=== PATIENT | male | born 1960 | race African-American/Black ===

== ENCOUNTER 2020-05-01 15:38 | Outpatient (CLI) | payer MEDICAID ==
[2020-05-02 01:49] LABS: SARS-CoV-2 PCR by NAA Not Detected (NotDetected)
== END 2020-05-01 15:39 | disposition home or self-care (01) ==
LOC: CSHLAB 15:38
PROVIDERS: ATTEND Surgery Surgery of the Hand
DX: Z20.822 Contact with and (suspected) exposure to COVID-19 (principal); M10.042 Idiopathic gout, left hand
CPT/HCPCS: 87635; 93005; 93010; U0003; U0005

== ENCOUNTER 2020-05-07 14:24 | Inpatient (IN) | payer OTHER ==
[2020-05-07] MEDS ORDERED: Senokot S 8.6-50 MG TAB PO PRN (15:26)
[2020-05-07] MEDS ORDERED: hydrOXYzine 10 MG TAB PO PRN (15:32)
[2020-05-07] MEDS ORDERED: Heparin 10,000 UNITS/ 10 ML VIAL SLOW IVP PRN (17:21)
[2020-05-07] MEDS ORDERED: EPOETIN ALFA-EPBX (ESRD) 4,000 UNIT/ML VIAL IVP PRN (17:22)
[2020-05-07] MEDS: cloNIDine 0.1 MG TAB PO SCH ×2 (17:30→20:40)
[2020-05-07] MEDS ORDERED: Sevelamer Carbonate 800 MG TAB PO PRN (20:36)
[2020-05-07 21:00] VITALS: BMI 18.7
[2020-05-07] MEDS: Sevelamer Carbonate 800 MG TAB PO SCH (21:35)
[2020-05-07] MEDS: Carvedilol 25 MG TAB PO SCH (21:36)
[2020-05-07] MEDS: TICAGRELOR 90 MG TABLET PO SCH (21:36)
[2020-05-07] MEDS: Heparin 5,000 UNITS/ML VIAL SC SCH (21:36)
[2020-05-08] MEDS: hydrALAZINE 20 MG/ML VIAL SLOW IVP PRN ×3 (00:09→16:51)
[2020-05-08 05:41] LABS: #Eosinphils 0.4 10x3/uL (0.0-0.5); #Monocytes 0.4 10x3/uL (0.0-1.1); #Neutrophils 3.4 10x3/uL (1.5-8.4); %Basophils 0.6 % (0.0-2.0); %Eosinophils 8.4 % (0.0-6.0); %Lymphocytes 10.3 % (18.0-47.0); %Monocytes 7.8 % (0.0-10.0); %Neutrophils 72.7 % (40.0-75.0); Hemoglobin 14.6 g/dL (13.5-17.5); Mean Corpuscular HGB CONC 30.7 g/dL (32.0-36.0); Mean Corpuscular Hemoglobin 27.9 pg (27.0-33.0); Mean Corpuscular Volume 90.8 fl (81.2-95.1); Mean Platelet Volume 11.1 fl (7.4-10.4); Platelet Count 137 10x3/uL (150-450); RBC Distribution Width 17.6 % (11.5-14.5); Red Blood Cell (RBC) Count 5.23 10x6/uL (4.32-5.72); White Blood Cell (WBC) Count 4.6 10x3/uL (3.5-10.5)
[2020-05-08 05:47] LABS: ALT (SGPT) Less than 6 U/L (8-55); AST (SGOT) 19 U/L (5-34); Albumin 4.2 g/dL (3.5-5.0); Alkaline Phosphatase 74 U/L (40-110); Anion Gap 21 mmol/L (10-20); BUN (Urea Nitrogen) 44 mg/dL (8.4-25.7); Bilirubin, Total 0.6 mg/dL (0.2-1.2); Calc. Creatinine Clearance 6 mL/min (70-130); Carbon Dioxide 28 mmol/L (22-29); Chloride 97 mmol/L (98-107); Globulin 3.3 g/dL (2.4-3.5); Glucose 88 mg/dL (70-105); Magnesium 2.3 mg/dL (1.6-2.6); Potassium 4.2 mmol/L (3.5-5.1); Protein, Total 7.5 g/dL (6.0-8.3); Sodium 142 mmol/L (136-145)
[2020-05-08 05:57] LABS: Phosphorus 6.2 mg/dL (2.3-4.7)
[2020-05-08] MEDS: Carvedilol 25 MG TAB PO SCH ×2 (08:41→22:17)
[2020-05-08] MEDS: Sevelamer Carbonate 800 MG TAB PO SCH ×3 (08:41→16:29)
[2020-05-08] MEDS: Heparin 5,000 UNITS/ML VIAL SC SCH ×4 (08:42→22:17)
[2020-05-08] MEDS: TICAGRELOR 90 MG TABLET PO SCH ×2 (08:42→22:18)
[2020-05-08] MEDS: Aspirin 81 mg Enteric Coated Tablet PO SCH (08:42)
[2020-05-08] MEDS: Losartan Potassium 50 MG TAB PO SCH (08:42)
[2020-05-08] MEDS: Ondansetron PF 4 MG/2 ML Vial IVP PRN (11:57)
[2020-05-08] MEDS ORDERED: Prevnar 13-Val Conj/PF 0.5 ML SYRINGE IM ONE (21:00)
[2020-05-08] MEDS ORDERED: FLU VACC QS2020-21(6MOS UP)/PF 60 MCG/0.5 ML SYRINGE IM ONE (21:00)
[2020-05-08] MEDS: Atorvastatin Calcium 20 MG TAB PO SCH (22:17)
[2020-05-09] MEDS: Sevelamer Carbonate 800 MG TAB PO SCH ×4 (08:34→17:47)
[2020-05-09] MEDS: TICAGRELOR 90 MG TABLET PO SCH ×2 (08:35→20:11)
[2020-05-09] MEDS: Carvedilol 25 MG TAB PO SCH ×2 (08:35→20:11)
[2020-05-09] MEDS: Losartan Potassium 50 MG TAB PO SCH (08:35)
[2020-05-09] MEDS: Aspirin 81 mg Enteric Coated Tablet PO SCH (08:35)
[2020-05-09] MEDS: Heparin 5,000 UNITS/ML VIAL SC SCH ×3 (09:14→21:25)
[2020-05-09] MEDS: Amlodipine 10 MG TAB PO SCH ×2 (12:44→13:12)
[2020-05-09] MEDS: Ondansetron PF 4 MG/2 ML Vial IVP PRN (13:23)
[2020-05-09 15:32] LABS: Anion Gap 24 mmol/L (10-20)
[2020-05-09 15:37] LABS: BUN (Urea Nitrogen) 65 mg/dL (8.4-25.7); Calc. Creatinine Clearance 5 mL/min (70-130); Calcium 10.3 mg/dL (7.8-10.44); Carbon Dioxide 31 mmol/L (22-29); Chloride 96 mmol/L (98-107); Glucose 109 mg/dL (70-105); Magnesium 2.7 mg/dL (1.6-2.6); Phosphorus 8.5 mg/dL (2.3-4.7); Potassium 4.8 mmol/L (3.5-5.1); Sodium 146 mmol/L (136-145)
[2020-05-09] MEDS: Acetaminophen 325 MG TAB PO PRN (16:18)
[2020-05-09] MEDS: Atorvastatin Calcium 20 MG TAB PO SCH (20:11)
[2020-05-10 06:07] LABS: ALT (SGPT) Less than 6 U/L (8-55); AST (SGOT) 13 U/L (5-34); Albumin 3.7 g/dL (3.5-5.0); Alkaline Phosphatase 67 U/L (40-110); Anion Gap 19 mmol/L (10-20); BUN (Urea Nitrogen) 31 mg/dL (8.4-25.7); Bilirubin, Total 0.5 mg/dL (0.2-1.2); Calc. Creatinine Clearance 7 mL/min (70-130); Calcium 9.7 mg/dL (7.8-10.44); Carbon Dioxide 29 mmol/L (22-29); Chloride 97 mmol/L (98-107); Globulin 3.1 g/dL (2.4-3.5); Glucose 86 mg/dL (70-105); Magnesium 2.2 mg/dL (1.6-2.6); Potassium 4.3 mmol/L (3.5-5.1); Protein, Total 6.8 g/dL (6.0-8.3); Sodium 141 mmol/L (136-145)
[2020-05-10 06:23] LABS: #Eosinphils 0.2 10x3/uL (0.0-0.5); #Monocytes 0.5 10x3/uL (0.0-1.1); #Neutrophils 2.5 10x3/uL (1.5-8.4); %Basophils 0.8 % (0.0-2.0); %Eosinophils 5.8 % (0.0-6.0); %Monocytes 12.4 % (0.0-10.0); %Neutrophils 67.8 % (40.0-75.0); Hemoglobin 9.6 g/dL (13.5-17.5); Mean Corpuscular HGB CONC 30.6 g/dL (32.0-36.0); Mean Corpuscular Hemoglobin 28.3 pg (27.0-33.0); Mean Corpuscular Volume 92.6 fl (81.2-95.1); Mean Platelet Volume 10.4 fl (7.4-10.4); Platelet Count 178 10x3/uL (150-450); Red Blood Cell (RBC) Count 3.64 10x6/uL (4.32-5.72); White Blood Cell (WBC) Count 3.7 10x3/uL (3.5-10.5)
[2020-05-10 06:58] LABS: Phosphorus 6.3 mg/dL (2.3-4.7)
[2020-05-10] MEDS ORDERED: Amlodipine 10 MG TAB PO SCH (09:00)
[2020-05-10] MEDS: Carvedilol 25 MG TAB PO SCH (09:44)
[2020-05-10] MEDS: Aspirin 81 mg Enteric Coated Tablet PO SCH (09:44)
[2020-05-10] MEDS: Losartan Potassium 50 MG TAB PO SCH (09:44)
[2020-05-10] MEDS: Sevelamer Carbonate 800 MG TAB PO SCH ×3 (09:45→18:14)
[2020-05-10] MEDS: Heparin 5,000 UNITS/ML VIAL SC SCH ×2 (09:45→18:13)
[2020-05-10] MEDS: TICAGRELOR 90 MG TABLET PO SCH (09:45)
[2020-05-10] MEDS ORDERED: levETIRAcetam in NS 500 MG in Premix Bag 1 BAG IVPB SCH (11:45)
[2020-05-10] MEDS: Acetaminophen 325 MG TAB PO PRN (13:30)
[2020-05-10 16:09] VITALS: BP 146/78; TEMP 98
== END 2020-05-10 18:30 | disposition home or self-care (01) | DRG 987 ==
LOC: CSHERS 14:24 → CSHTELE 20:18 → OBSVTOIN 05-09 13:59
PROVIDERS: ADMIT Internal Medicine; ATTEND Internal Medicine
PROC: 0X6P0Z3 Detachment at Left Index Finger, Low, Open Approach (ICD-10-PCS; 2020-05-06)
PROC: 5A1D70Z Performance of Urinary Filtration, Intermittent, Less than 6 Hours Per Day (ICD-10-PCS; principal; 2020-05-09)
DX: G93.49 Other encephalopathy (principal); N18.6 End stage renal disease; I12.0 Hypertensive chronic kidney disease with stage 5 chronic kidney disease or end stage renal disease; E87.0 Hyperosmolality and hypernatremia; G93.41 Metabolic encephalopathy; I25.10 Atherosclerotic heart disease of native coronary artery without angina pectoris; L29.9 Pruritus, unspecified; E78.5 Hyperlipidemia, unspecified; D63.1 Anemia in chronic kidney disease; E87.5 Hyperkalemia; E83.39 Other disorders of phosphorus metabolism; Z79.899 Other long term (current) drug therapy; Z89.022 Acquired absence of left finger(s); Z91.14 Patient's other noncompliance with medication regimen; Z99.2 Dependence on renal dialysis; Z95.5 Presence of coronary angioplasty implant and graft; M1A.9XX1 Chronic gout, unspecified, with tophus (tophi)
CPT/HCPCS: 36415; 80048; 80053; 83735; 84100; 85025; 87070; 87205; 88305; 88311; 89060; 90935; 94760; 96372; 96374; 96376; 99285; G0257; G0378; J0360; J0690; J1644; J2001; J2250; J2405; Q5105; S0020

== ENCOUNTER 2020-06-10 10:58 | Inpatient (IN) | payer OTHER ==
[2020-06-10 12:47] LABS: #Monocytes 0.7 10x3/uL (0.0-1.1); #Neutrophils 7.8 10x3/uL (1.5-8.4); %Basophils 0.3 % (0.0-2.0); %Eosinophils 0.4 % (0.0-6.0); %Lymphocytes 4.7 % (18.0-47.0); %Monocytes 8.1 % (0.0-10.0); %Neutrophils 85.7 % (40.0-75.0); Mean Corpuscular HGB CONC 29.9 g/dL (32.0-36.0); Platelet Count 150 10x3/uL (150-450); RBC Distribution Width 17.6 % (11.5-14.5); Red Blood Cell (RBC) Count 2.69 10x6/uL (4.32-5.72); White Blood Cell (WBC) Count 9.1 10x3/uL (3.5-10.5)
[2020-06-10 12:59] LABS: ALT (SGPT) Less than 6 U/L (8-55); AST (SGOT) 10 U/L (5-34); Albumin 3.2 g/dL (3.5-5.0); Alkaline Phosphatase 104 U/L (40-110); Anion Gap 21 mmol/L (10-20); BUN (Urea Nitrogen) 47 mg/dL (8.4-25.7); Bilirubin, Total 0.8 mg/dL (0.2-1.2); Calc. Creatinine Clearance 0 mL/min (70-130); Calcium 9.5 mg/dL (7.8-10.44); Carbon Dioxide 30 mmol/L (22-29); Chloride 96 mmol/L (98-107); Globulin 3.6 g/dL (2.4-3.5); Glucose 108 mg/dL (70-105); Potassium 4.6 mmol/L (3.5-5.1); Protein, Total 6.8 g/dL (6.0-8.3); Sodium 142 mmol/L (136-145)
[2020-06-10 13:15] LABS: Hypochromia SLIGHT = 6-15 cells (100X) (0-5/hpf); Platelet Morphology Comment Appears Adequate
[2020-06-10 13:22] LABS: CKMB 0.7 ng/mL (0-6.6)
[2020-06-10] MEDS ORDERED: Ondansetron PF 4 MG/2 ML Vial IVP PRN (13:45)
[2020-06-10] MEDS ORDERED: Loperamide HCl 2 MG CAP PO PRN (13:45)
[2020-06-10] MEDS ORDERED: HYDROcodone/Acetaminophen 5/325 mg Tablet PO PRN (13:45)
[2020-06-10] MEDS ORDERED: Acetaminophen 325 MG TAB PO PRN (13:45)
[2020-06-10] MEDS ORDERED: Cepastat Lozenges 1 LOZ PO PRN (13:45)
[2020-06-10] MEDS ORDERED: Calcium Carbonate 500 MG ChewTAB PO PRN (13:45)
[2020-06-10] MEDS ORDERED: Guaifenesin DM 100-10/5 ML UDCUP PO PRN (13:45)
[2020-06-10] MEDS ORDERED: Loratadine 10 MG TAB PO PRN (13:45)
[2020-06-10] MEDS ORDERED: Bisacodyl 10 MG SUPP PR PRN (13:45)
[2020-06-10] MEDS ORDERED: Senokot S 8.6-50 MG TAB PO PRN (13:45)
[2020-06-10] MEDS ORDERED: Ondansetron ODT 4 MG TAB PO PRN (13:45)
[2020-06-10] MEDS ORDERED: Labetalol HCl 100 MG/20 ML VIAL SLOW IVP PRN (13:45)
[2020-06-10] MEDS ORDERED: Sodium Chloride 0.65% Nasal 44 ML BOT EA NARE PRN (13:45)
[2020-06-10] MEDS ORDERED: Eucerin (Mineral Oil/Petrolatum,White) 30 gm Jar TOP PRN (13:45)
[2020-06-10] MEDS ORDERED: Zolpidem Tartrate 5 MG TAB PO PRN (13:45)
[2020-06-10] MEDS ORDERED: Acetaminophen/Codeine 30-300mg Tablet PO PRN (13:46)
[2020-06-10] MEDS ORDERED: hydrOXYzine 10 MG TAB PO PRN (13:46)
[2020-06-10 17:21] LABS: Actual Bicarbonate (HCO3a) 34.5 mEq/L (22-28); CO2 Tension 46.6 mmHg (35.0-45.0); Carboxyhemoglobin (COHb) 0.2 gm% (0.0-3.0); Hemoglobin (Hb) 9.7 g/dL (14.0-18.0); O2 Tension (PaO2), arterial 80.3 mmHg (80.0-100.0); Potassium - ABG Lab 3.5 mmol/L (3.70-5.30); Puncture Site LRA; pH, Arterial 7.49 (7.35-7.45)
[2020-06-10 21:23] VITALS: BMI 19.4
[2020-06-10] MEDS: Carvedilol 25 MG TAB PO SCH (22:04)
[2020-06-10] MEDS: Atorvastatin Calcium 20 MG TAB PO SCH (22:04)
[2020-06-10] MEDS: TICAGRELOR 90 MG TABLET PO SCH (22:04)
[2020-06-10] MEDS: Ferrous Sulfate 325 MG TAB PO SCH (22:04)
[2020-06-10] MEDS: Sevelamer Carbonate 800 MG TAB PO SCH (22:04)
[2020-06-10] MEDS: Heparin 5,000 UNITS/ML VIAL SC SCH (22:22)
[2020-06-11] MEDS: Amlodipine 10 MG TAB PO SCH (08:33)
[2020-06-11] MEDS: Heparin 5,000 UNITS/ML VIAL SC SCH ×2 (08:33→20:57)
[2020-06-11] MEDS: Folic Acid/Vit B Comp W-C PO SCH (08:33)
[2020-06-11] MEDS: Ferrous Sulfate 325 MG TAB PO SCH ×2 (08:34→18:12)
[2020-06-11] MEDS: TICAGRELOR 90 MG TABLET PO SCH ×2 (08:34→20:54)
[2020-06-11] MEDS: Carvedilol 25 MG TAB PO SCH ×2 (08:34→20:54)
[2020-06-11] MEDS: Losartan Potassium 50 MG TAB PO SCH (08:34)
[2020-06-11] MEDS: Sevelamer Carbonate 800 MG TAB PO SCH ×3 (08:34→18:12)
[2020-06-11] MEDS: Aspirin 81 mg Enteric Coated Tablet PO SCH (08:34)
[2020-06-11 08:58] LABS: #Eosinphils 0.1 10x3/uL (0.0-0.5); #Monocytes 0.6 10x3/uL (0.0-1.1); #Neutrophils 8.8 10x3/uL (1.5-8.4); %Basophils 0.4 % (0.0-2.0); %Eosinophils 1.1 % (0.0-6.0); %Lymphocytes 3.6 % (18.0-47.0); %Monocytes 5.7 % (0.0-10.0); %Neutrophils 88.8 % (40.0-75.0); Hemoglobin 9.2 g/dL (13.5-17.5); Mean Corpuscular Hemoglobin 26.4 pg (27.0-33.0); Mean Platelet Volume 10.2 fl (7.4-10.4); Platelet Count 175 10x3/uL (150-450); RBC Distribution Width 17.2 % (11.5-14.5); Red Blood Cell (RBC) Count 3.49 10x6/uL (4.32-5.72); White Blood Cell (WBC) Count 9.9 10x3/uL (3.5-10.5)
[2020-06-11 09:31] LABS: ALT (SGPT) 7 U/L (8-55); AST (SGOT) 10 U/L (5-34); Albumin 3.6 g/dL (3.5-5.0); Alkaline Phosphatase 101 U/L (40-110); Anion Gap 21 mmol/L (10-20); BUN (Urea Nitrogen) 29 mg/dL (8.4-25.7); Calc. Creatinine Clearance 7 mL/min (70-130); Calcium 10.5 mg/dL (7.8-10.44); Carbon Dioxide 31 mmol/L (22-29); Chloride 95 mmol/L (98-107); Globulin 4.1 g/dL (2.4-3.5); Glucose 102 mg/dL (70-105); Phosphorus 4.9 mg/dL (2.3-4.7); Potassium 4.4 mmol/L (3.5-5.1); Protein, Total 7.7 g/dL (6.0-8.3); Sodium 143 mmol/L (136-145)
[2020-06-11 14:36] LABS: SARS-CoV-2 PCR by NAA Not Detected (NotDetected)
[2020-06-11] MEDS ORDERED: Heparin 5,000 UNITS/ML VIAL ONE (20:49)
[2020-06-11] MEDS: Atorvastatin Calcium 20 MG TAB PO SCH (20:54)
[2020-06-12] MEDS: Losartan Potassium 50 MG TAB PO SCH (09:40)
[2020-06-12] MEDS: Amlodipine 10 MG TAB PO SCH (09:40)
[2020-06-12] MEDS: TICAGRELOR 90 MG TABLET PO SCH ×2 (09:41→20:24)
[2020-06-12] MEDS: Carvedilol 25 MG TAB PO SCH ×2 (09:41→20:24)
[2020-06-12] MEDS: Aspirin 81 mg Enteric Coated Tablet PO SCH (09:41)
[2020-06-12] MEDS: Ferrous Sulfate 325 MG TAB PO SCH ×2 (09:41→17:08)
[2020-06-12] MEDS: Heparin 5,000 UNITS/ML VIAL SC SCH ×2 (09:43→19:20)
[2020-06-12] MEDS: Sevelamer Carbonate 800 MG TAB PO SCH ×4 (09:43→17:07)
[2020-06-12] MEDS: Folic Acid/Vit B Comp W-C PO SCH (09:46)
[2020-06-12] MEDS: Atorvastatin Calcium 20 MG TAB PO SCH (20:24)
[2020-06-13] MEDS: TICAGRELOR 90 MG TABLET PO SCH ×2 (08:28→21:05)
[2020-06-13] MEDS: Aspirin 81 mg Enteric Coated Tablet PO SCH (08:28)
[2020-06-13] MEDS: Losartan Potassium 50 MG TAB PO SCH (08:28)
[2020-06-13] MEDS: Amlodipine 10 MG TAB PO SCH (08:28)
[2020-06-13] MEDS: Folic Acid/Vit B Comp W-C PO SCH (08:28)
[2020-06-13] MEDS: Carvedilol 25 MG TAB PO SCH ×2 (08:28→21:05)
[2020-06-13] MEDS: Ferrous Sulfate 325 MG TAB PO SCH ×2 (08:28→16:47)
[2020-06-13] MEDS: Sevelamer Carbonate 800 MG TAB PO SCH ×3 (08:28→16:47)
[2020-06-13] MEDS: Heparin 5,000 UNITS/ML VIAL SC SCH ×3 (08:29→21:20)
[2020-06-13] MEDS ORDERED: hydrOXYzine 25 MG TAB PO PRN (12:45)
[2020-06-13] MEDS: Atorvastatin Calcium 20 MG TAB PO SCH (21:05)
[2020-06-14] MEDS: TICAGRELOR 90 MG TABLET PO SCH ×2 (08:11→20:25)
[2020-06-14] MEDS: Carvedilol 25 MG TAB PO SCH ×2 (08:11→20:25)
[2020-06-14] MEDS: Aspirin 81 mg Enteric Coated Tablet PO SCH (08:11)
[2020-06-14] MEDS: Ferrous Sulfate 325 MG TAB PO SCH ×2 (08:11→16:58)
[2020-06-14] MEDS: Folic Acid/Vit B Comp W-C PO SCH (08:11)
[2020-06-14] MEDS: Losartan Potassium 50 MG TAB PO SCH (08:11)
[2020-06-14] MEDS: Sevelamer Carbonate 800 MG TAB PO SCH ×3 (08:11→16:57)
[2020-06-14] MEDS: Amlodipine 10 MG TAB PO SCH (08:11)
[2020-06-14] MEDS: Heparin 5,000 UNITS/ML VIAL SC SCH ×2 (08:12→20:25)
[2020-06-14] MEDS: Atorvastatin Calcium 20 MG TAB PO SCH (20:25)
[2020-06-15 08:47] LABS: Anion Gap 21 mmol/L (10-20); BUN (Urea Nitrogen) 43 mg/dL (8.4-25.7); Calc. Creatinine Clearance 6 mL/min (70-130); Calcium 10.1 mg/dL (7.8-10.44); Carbon Dioxide 28 mmol/L (22-29); Chloride 96 mmol/L (98-107); Glucose 95 mg/dL (70-105); Potassium 3.8 mmol/L (3.5-5.1); Sodium 141 mmol/L (136-145)
[2020-06-15] MEDS: Amlodipine 10 MG TAB PO SCH (09:27)
[2020-06-15] MEDS: Carvedilol 25 MG TAB PO SCH (09:27)
[2020-06-15] MEDS: TICAGRELOR 90 MG TABLET PO SCH (09:27)
[2020-06-15] MEDS: Ferrous Sulfate 325 MG TAB PO SCH ×2 (09:27→16:22)
[2020-06-15] MEDS: Losartan Potassium 50 MG TAB PO SCH (09:27)
[2020-06-15] MEDS: Folic Acid/Vit B Comp W-C PO SCH (09:28)
[2020-06-15] MEDS: Heparin 5,000 UNITS/ML VIAL SC SCH (09:28)
[2020-06-15] MEDS: Aspirin 81 mg Enteric Coated Tablet PO SCH (09:28)
[2020-06-15] MEDS: Sevelamer Carbonate 800 MG TAB PO SCH ×3 (09:28→16:22)
[2020-06-15 20:42] VITALS: BP 119/69; TEMP 98.5
== END 2020-06-15 20:20 | disposition home or self-care (01) | DRG 291 ==
LOC: CSHERS 10:58 → CSHTELE 16:39
PROVIDERS: ADMIT Internal Medicine; ATTEND Internal Medicine
PROC: 30233N1 Transfusion of Nonautologous Red Blood Cells into Peripheral Vein, Percutaneous Approach (ICD-10-PCS; principal; 2020-06-10)
PROC: 5A1D70Z Performance of Urinary Filtration, Intermittent, Less than 6 Hours Per Day (ICD-10-PCS; 2020-06-10)
PROC: 5A09357 Assistance with Respiratory Ventilation, Less than 24 Consecutive Hours, Continuous Positive Airway Pressure (ICD-10-PCS; 2020-06-10)
DX: I13.2 Hypertensive heart and chronic kidney disease with heart failure and with stage 5 chronic kidney disease, or end stage renal disease (principal); Z20.822 Contact with and (suspected) exposure to COVID-19; I50.43 Acute on chronic combined systolic (congestive) and diastolic (congestive) heart failure; N18.6 End stage renal disease; J96.01 Acute respiratory failure with hypoxia; N25.81 Secondary hyperparathyroidism of renal origin; E87.70 Fluid overload, unspecified; I42.9 Cardiomyopathy, unspecified; Z99.2 Dependence on renal dialysis; D63.1 Anemia in chronic kidney disease; Z91.15 Patient's noncompliance with renal dialysis; E78.5 Hyperlipidemia, unspecified; Z79.82 Long term (current) use of aspirin; Z79.899 Other long term (current) drug therapy; I25.2 Old myocardial infarction; Z95.5 Presence of coronary angioplasty implant and graft
CPT/HCPCS: 36415; 36430; 36600; 71045; 80048; 80053; 82553; 82805; 83880; 84100; 84484; 85025; 86850; 86900; 86901; 87635; 90935; 93005; 94760; G0257; J1644; P9016; U0003; U0005

== ENCOUNTER 2020-06-23 12:16 | Emergency (ER) | payer OTHER ==
[2020-06-23 15:13] LABS: SARS-CoV-2 NAA Rapid Test Not Detected (NotDetected)
== END 2020-06-23 15:44 | disposition home or self-care (01) ==
LOC: CSHERS 12:16
DX: J02.9 Acute pharyngitis, unspecified (principal); I13.2 Hypertensive heart and chronic kidney disease with heart failure and with stage 5 chronic kidney disease, or end stage renal disease; I50.9 Heart failure, unspecified; N18.6 End stage renal disease; I25.2 Old myocardial infarction; Z20.822 Contact with and (suspected) exposure to COVID-19
CPT/HCPCS: 0240U; 71045; 93005

== ENCOUNTER 2020-06-24 02:35 | Inpatient (IN) | payer OTHER ==
[2020-06-24] MEDS ORDERED: Aspirin Chewable 81 MG TAB ONE (03:03)
[2020-06-24 03:24] LABS: #Eosinphils 0.2 10x3/uL (0.0-0.5); #Monocytes 0.9 10x3/uL (0.0-1.1); #Neutrophils 5.2 10x3/uL (1.5-8.4); %Basophils 0.6 % (0.0-2.0); %Eosinophils 2.7 % (0.0-6.0); %Lymphocytes 10.6 % (18.0-47.0); %Monocytes 12.3 % (0.0-10.0); %Neutrophils 73.1 % (40.0-75.0); Hemoglobin 8.2 g/dL (13.5-17.5); Mean Corpuscular HGB CONC 29.9 g/dL (32.0-36.0); Mean Corpuscular Hemoglobin 25.7 pg (27.0-33.0); Mean Corpuscular Volume 85.9 fl (81.2-95.1); Mean Platelet Volume 9.3 fl (7.4-10.4); Platelet Count 237 10x3/uL (150-450); RBC Distribution Width 18.1 % (11.5-14.5); Red Blood Cell (RBC) Count 3.19 10x6/uL (4.32-5.72); White Blood Cell (WBC) Count 7.1 10x3/uL (3.5-10.5)
[2020-06-24 03:30] LABS: ALT (SGPT) 11 U/L (8-55); AST (SGOT) 13 U/L (5-34); Albumin 3.4 g/dL (3.5-5.0); Alkaline Phosphatase 92 U/L (40-110); Anion Gap 26 mmol/L (10-20); BUN (Urea Nitrogen) 87 mg/dL (8.4-25.7); Bilirubin, Total 0.6 mg/dL (0.2-1.2); Calc. Creatinine Clearance 0 mL/min (70-130); Calcium 9.6 mg/dL (7.8-10.44); Carbon Dioxide 23 mmol/L (22-29); Chloride 99 mmol/L (98-107); Globulin 3.8 g/dL (2.4-3.5); Glucose 113 mg/dL (70-105); Lipase 72 U/L (8-78); Potassium 4.7 mmol/L (3.5-5.1); Protein, Total 7.2 g/dL (6.0-8.3); Sodium 143 mmol/L (136-145)
[2020-06-24 03:41] LABS: Hypochromia SLIGHT = 6-15 cells (100X) (0-5/hpf); Polychromasia SLIGHT = 2-3 cells (100X) (0-2/hpf)
[2020-06-24 03:47] LABS: CKMB 2.4 ng/mL (0-6.6)
[2020-06-24] MEDS ORDERED: Nitroglycerin 2% Ointment 1 INCH/1 GM Packet ONE (04:26)
[2020-06-24] MEDS ORDERED: HYDROcodone/Acetaminophen 5/325 mg Tablet PO PRN (04:53)
[2020-06-24] MEDS ORDERED: Calcium Carbonate 500 MG ChewTAB PO PRN (04:53)
[2020-06-24] MEDS ORDERED: Senokot S 8.6-50 MG TAB PO PRN (04:53)
[2020-06-24] MEDS ORDERED: Guaifenesin DM 100-10/5 ML UDCUP PO PRN (04:53)
[2020-06-24] MEDS ORDERED: Carvedilol 25 MG TAB PO SCH ×2 (06:00→09:00)
[2020-06-24] MEDS ORDERED: hydrALAZINE 25 MG TAB PO SCH ×2 (06:00→09:00)
[2020-06-24 06:56] VITALS: BMI 27.3
[2020-06-24] MEDS ORDERED: Amlodipine 10 MG TAB PO SCH (09:00)
[2020-06-24] MEDS: TICAGRELOR 90 MG TABLET PO SCH ×2 (09:15→21:09)
[2020-06-24] MEDS: Sevelamer Carbonate 800 MG TAB PO SCH ×3 (09:15→17:26)
[2020-06-24] MEDS: NIFEdipine XL 60 MG TAB PO SCH (09:16)
[2020-06-24] MEDS: Aspirin 81 mg Enteric Coated Tablet PO SCH (09:16)
[2020-06-24] MEDS: Folic Acid/Vit B Comp W-C PO SCH (09:16)
[2020-06-24] MEDS: Famotidine 20 MG TAB PO SCH (09:16)
[2020-06-24] MEDS: Heparin 5,000 UNITS/ML VIAL SC SCH ×3 (10:02→21:09)
[2020-06-24 11:22] LABS: CKMB 2.3 ng/mL (0-6.6)
[2020-06-24] MEDS: Nitroglycerin 2% Ointment 1 INCH/1 GM Packet TOP SCH ×3 (12:11→22:00)
[2020-06-24] MEDS: Acetaminophen 325 MG TAB PO PRN (12:26)
[2020-06-24] MEDS: hydrALAZINE 25 MG TAB PO SCH ×2 (15:46→17:14)
[2020-06-24] MEDS: Carvedilol 25 MG TAB PO SCH (17:14)
[2020-06-24] MEDS: Cepastat Lozenges 1 LOZ PO PRN (17:25)
[2020-06-24] MEDS: Atorvastatin Calcium 20 MG TAB PO SCH (21:09)
[2020-06-25] MEDS: hydrALAZINE 25 MG TAB PO SCH ×3 (01:50→18:46)
[2020-06-25] MEDS ORDERED: Haloperidol Lactate 5 MG/ML VIAL IM SCH (04:15)
[2020-06-25] MEDS: Lidocaine-Prilocaine 2.5% Cream 5 GM TUBE TOP SCH (06:30)
[2020-06-25] MEDS: Nitroglycerin 2% Ointment 1 INCH/1 GM Packet TOP SCH ×3 (06:31→17:41)
[2020-06-25] MEDS: Carvedilol 25 MG TAB PO SCH ×2 (06:31→17:37)
[2020-06-25] MEDS: Famotidine 20 MG TAB PO SCH (08:45)
[2020-06-25] MEDS: Folic Acid/Vit B Comp W-C PO SCH (08:45)
[2020-06-25] MEDS: Aspirin 81 mg Enteric Coated Tablet PO SCH (08:45)
[2020-06-25] MEDS: TICAGRELOR 90 MG TABLET PO SCH ×2 (08:45→21:49)
[2020-06-25] MEDS: NIFEdipine XL 60 MG TAB PO SCH (08:45)
[2020-06-25] MEDS: Sevelamer Carbonate 800 MG TAB PO SCH ×3 (08:48→18:45)
[2020-06-25] MEDS: Heparin 5,000 UNITS/ML VIAL SC SCH ×2 (08:49→17:41)
[2020-06-25] MEDS: Haloperidol Lactate 5 MG/ML VIAL IM PRN ×2 (10:44→16:10)
[2020-06-25 12:13] LABS: #Basophils 0.1 10x3/uL (0.0-0.2); #Eosinphils 0.1 10x3/uL (0.0-0.5); #Neutrophils 7.8 10x3/uL (1.5-8.4); %Basophils 0.5 % (0.0-2.0); %Eosinophils 1.2 % (0.0-6.0); %Monocytes 10.3 % (0.0-10.0); %Neutrophils 82.6 % (40.0-75.0); Hemoglobin 7.5 g/dL (13.5-17.5); Mean Corpuscular Hemoglobin 25.8 pg (27.0-33.0); Mean Corpuscular Volume 83.2 fl (81.2-95.1); Mean Platelet Volume 9.7 fl (7.4-10.4); Platelet Count 241 10x3/uL (150-450); RBC Distribution Width 18.3 % (11.5-14.5); Red Blood Cell (RBC) Count 2.91 10x6/uL (4.32-5.72); White Blood Cell (WBC) Count 9.4 10x3/uL (3.5-10.5)
[2020-06-25 12:31] LABS: Anion Gap 27 mmol/L (10-20); BUN (Urea Nitrogen) 98 mg/dL (8.4-25.7); Calc. Creatinine Clearance 4 mL/min (70-130); Calcium 9.1 mg/dL (7.8-10.44); Carbon Dioxide 21 mmol/L (22-29); Chloride 99 mmol/L (98-107); Glucose 118 mg/dL (70-105); Potassium 5.1 mmol/L (3.5-5.1); Sodium 142 mmol/L (136-145)
[2020-06-25] MEDS ORDERED: EPOETIN ALFA-EPBX (ESRD) 10,000 UNIT/ML VIAL SC SCH (17:00)
[2020-06-25] MEDS ORDERED: hydrALAZINE 25 MG TAB PO SCH ×2 (17:30→21:00)
[2020-06-25] MEDS: Atorvastatin Calcium 20 MG TAB PO SCH (21:48)
[2020-06-26] MEDS: Acetaminophen 325 MG TAB PO PRN ×2 (00:23→21:39)
[2020-06-26] MEDS: Heparin 5,000 UNITS/ML VIAL SC SCH ×4 (05:36→21:47)
[2020-06-26] MEDS: Nitroglycerin 2% Ointment 1 INCH/1 GM Packet TOP SCH ×4 (05:36→21:47)
[2020-06-26] MEDS: Lidocaine-Prilocaine 2.5% Cream 5 GM TUBE TOP SCH (05:36)
[2020-06-26] MEDS: Carvedilol 25 MG TAB PO SCH ×2 (06:37→10:08)
[2020-06-26] MEDS ORDERED: hydrALAZINE 25 MG TAB PO SCH (07:45)
[2020-06-26] MEDS ORDERED: NIFEdipine XL 90 MG TAB PO SCH (09:00)
[2020-06-26] MEDS: NIFEdipine XL 30 MG TAB PO SCH (10:08)
[2020-06-26] MEDS: Aspirin 81 mg Enteric Coated Tablet PO SCH (10:08)
[2020-06-26] MEDS: Sevelamer Carbonate 800 MG TAB PO SCH ×3 (10:08→18:10)
[2020-06-26] MEDS: Folic Acid/Vit B Comp W-C PO SCH (10:08)
[2020-06-26] MEDS: Famotidine 20 MG TAB PO SCH (10:09)
[2020-06-26] MEDS: TICAGRELOR 90 MG TABLET PO SCH ×2 (10:10→21:47)
[2020-06-26 11:20] LABS: Anion Gap 23 mmol/L (10-20); BUN (Urea Nitrogen) 39 mg/dL (8.4-25.7); Calc. Creatinine Clearance 7 mL/min (70-130); Carbon Dioxide 26 mmol/L (22-29); Chloride 98 mmol/L (98-107); Glucose 97 mg/dL (70-105); Potassium 4.9 mmol/L (3.5-5.1); Sodium 142 mmol/L (136-145)
[2020-06-26 11:22] LABS: #Basophils 0.1 10x3/uL (0.0-0.2); #Eosinphils 0.1 10x3/uL (0.0-0.5); #Monocytes 0.9 10x3/uL (0.0-1.1); #Neutrophils 9.6 10x3/uL (1.5-8.4); %Basophils 0.6 % (0.0-2.0); %Eosinophils 0.6 % (0.0-6.0); %Lymphocytes 4.7 % (18.0-47.0); %Neutrophils 82.7 % (40.0-75.0); Hemoglobin 7.2 g/dL (13.5-17.5); Mean Corpuscular HGB CONC 30.3 g/dL (32.0-36.0); Mean Corpuscular Hemoglobin 25.5 pg (27.0-33.0); Mean Corpuscular Volume 84.4 fl (81.2-95.1); Mean Platelet Volume 9.3 fl (7.4-10.4); Platelet Count 213 10x3/uL (150-450); RBC Distribution Width 18.1 % (11.5-14.5); Red Blood Cell (RBC) Count 2.82 10x6/uL (4.32-5.72); White Blood Cell (WBC) Count 11.7 10x3/uL (3.5-10.5)
[2020-06-26] MEDS: hydrALAZINE 25 MG TAB PO SCH ×2 (15:07→21:47)
[2020-06-26] MEDS ORDERED: Piperacillin/Tazobactam 3.375 GM in Sodium Chloride 0.9% 100 ML IVPB SCH (18:00)
[2020-06-26 20:35] LABS: SARS-CoV-2 IgG Ab Non-Reactive (NonReactive); SARS-CoV-2 IgG Index 0.05 S/CO (< 1.40)
[2020-06-26] MEDS: Piperacillin/Tazobactam 3.375 GM in Sodium Chloride 0.9% 100 ML IVPB SCH (21:47)
[2020-06-26] MEDS: Atorvastatin Calcium 20 MG TAB PO SCH (21:47)
[2020-06-27] MEDS ORDERED: Haloperidol Lactate 5 MG/ML VIAL IM SCH (00:30)
[2020-06-27] MEDS: Cepastat Lozenges 1 LOZ PO PRN ×2 (01:45→04:24)
[2020-06-27] MEDS: Piperacillin/Tazobactam 3.375 GM in Sodium Chloride 0.9% 100 ML IVPB SCH (01:50)
[2020-06-27 01:53] LABS: SARS-CoV-2 PCR by NAA Not Detected (NotDetected)
[2020-06-27] MEDS: Lidocaine-Prilocaine 2.5% Cream 5 GM TUBE TOP SCH (04:14)
[2020-06-27] MEDS: Acetaminophen 325 MG TAB PO PRN ×2 (04:25→21:37)
[2020-06-27] MEDS: Nitroglycerin 2% Ointment 1 INCH/1 GM Packet TOP SCH ×3 (05:55→21:37)
[2020-06-27] MEDS: Carvedilol 25 MG TAB PO SCH ×2 (05:55→15:37)
[2020-06-27] MEDS: NIFEdipine XL 30 MG TAB PO SCH (09:14)
[2020-06-27] MEDS: Aspirin 81 mg Enteric Coated Tablet PO SCH (09:14)
[2020-06-27] MEDS: Famotidine 20 MG TAB PO SCH (09:14)
[2020-06-27] MEDS: Sevelamer Carbonate 800 MG TAB PO SCH ×3 (09:14→15:37)
[2020-06-27] MEDS: TICAGRELOR 90 MG TABLET PO SCH ×2 (09:14→21:36)
[2020-06-27] MEDS: Folic Acid/Vit B Comp W-C PO SCH (09:15)
[2020-06-27] MEDS: hydrALAZINE 25 MG TAB PO SCH ×3 (09:15→21:35)
[2020-06-27] MEDS: Heparin 5,000 UNITS/ML VIAL SC SCH ×3 (09:15→21:43)
[2020-06-27] MEDS ORDERED: Heparin 10,000 UNITS/ 10 ML VIAL SLOW IVP PRN (09:50)
[2020-06-27] MEDS ORDERED: EPOETIN ALFA-EPBX (ESRD) 10,000 UNIT/ML VIAL IVP PRN (09:51)
[2020-06-27] MEDS ORDERED: VANCOMYCIN 1.25 GM/250 ML BAG 1.25 GM in Premix Bag 1 BAG IVPB SCH (10:00)
[2020-06-27] MEDS ORDERED: Vancomycin HCl 750 MG in Sodium Chloride 0.9% 250 ML 250 ML IVPB SCH (10:15)
[2020-06-27] MEDS ORDERED: Vancomycin HCl 1 GM in Sodium Chloride 0.9% 250 ML 250 ML IVPB SCH (10:15)
[2020-06-27] MEDS ORDERED: HOLD VANCOMYCIN FOR LEVEL >20 IVP SCH (10:15)
[2020-06-27] MEDS ORDERED: Vancomycin HCl 250 MG in Sodium Chloride 0.9% 100 ML IVPB SCH (10:15)
[2020-06-27] MEDS ORDERED: Vancomycin HCl 500 MG in Sodium Chloride 0.9% 100 ML IVPB SCH (10:15)
[2020-06-27] MEDS ORDERED: Vancomycin 1 GM in Premix Bag 1 BAG IVPB SCH (21:00)
[2020-06-27] MEDS: Atorvastatin Calcium 20 MG TAB PO SCH (21:35)
[2020-06-28] MEDS: Lidocaine-Prilocaine 2.5% Cream 5 GM TUBE TOP SCH (04:00)
[2020-06-28] MEDS: Carvedilol 25 MG TAB PO SCH ×2 (07:40→15:47)
[2020-06-28] MEDS: Nitroglycerin 2% Ointment 1 INCH/1 GM Packet TOP SCH ×3 (07:40→23:03)
[2020-06-28] MEDS: NIFEdipine XL 30 MG TAB PO SCH (08:21)
[2020-06-28] MEDS: Aspirin 81 mg Enteric Coated Tablet PO SCH (08:22)
[2020-06-28] MEDS: Folic Acid/Vit B Comp W-C PO SCH (08:22)
[2020-06-28] MEDS: Famotidine 20 MG TAB PO SCH (08:22)
[2020-06-28] MEDS: hydrALAZINE 25 MG TAB PO SCH ×3 (08:22→21:40)
[2020-06-28] MEDS: Sevelamer Carbonate 800 MG TAB PO SCH ×3 (08:22→15:47)
[2020-06-28] MEDS: TICAGRELOR 90 MG TABLET PO SCH ×2 (08:22→21:41)
[2020-06-28] MEDS: Heparin 5,000 UNITS/ML VIAL SC SCH ×3 (08:23→21:40)
[2020-06-28 12:33] LABS: #Eosinphils 0.2 10x3/uL (0.0-0.5); #Monocytes 0.9 10x3/uL (0.0-1.1); %Basophils 0.3 % (0.0-2.0); %Eosinophils 2.1 % (0.0-6.0); %Monocytes 8.8 % (0.0-10.0); %Neutrophils 80.3 % (40.0-75.0); Hemoglobin 10.5 g/dL (13.5-17.5); Mean Corpuscular HGB CONC 30.9 g/dL (32.0-36.0); Mean Corpuscular Hemoglobin 26.1 pg (27.0-33.0); Mean Corpuscular Volume 84.4 fl (81.2-95.1); Mean Platelet Volume 9.8 fl (7.4-10.4); Platelet Count 200 10x3/uL (150-450); RBC Distribution Width 17.5 % (11.5-14.5); Red Blood Cell (RBC) Count 4.03 10x6/uL (4.32-5.72)
[2020-06-28 12:46] LABS: Anion Gap 23 mmol/L (10-20); BUN (Urea Nitrogen) 31 mg/dL (8.4-25.7); CRP (Inflammatory) 25.52 mg/dL (= or < 0.5); Calc. Creatinine Clearance 12 mL/min (70-130); Calcium 10.1 mg/dL (7.8-10.44); Carbon Dioxide 26 mmol/L (22-29); Chloride 94 mmol/L (98-107); Glucose 89 mg/dL (70-105); Potassium 4.3 mmol/L (3.5-5.1); Sodium 139 mmol/L (136-145)
[2020-06-28] MEDS: Atorvastatin Calcium 20 MG TAB PO SCH (21:42)
[2020-06-29] MEDS: Lidocaine-Prilocaine 2.5% Cream 5 GM TUBE TOP SCH (05:13)
[2020-06-29] MEDS: Carvedilol 25 MG TAB PO SCH (05:30)
[2020-06-29] MEDS: Nitroglycerin 2% Ointment 1 INCH/1 GM Packet TOP SCH (05:35)
[2020-06-29 09:00] VITALS: BP 158/97; TEMP 96.8
[2020-06-29] MEDS: Aspirin 81 mg Enteric Coated Tablet PO SCH (09:57)
[2020-06-29] MEDS: TICAGRELOR 90 MG TABLET PO SCH (09:57)
[2020-06-29] MEDS: NIFEdipine XL 30 MG TAB PO SCH (09:57)
[2020-06-29] MEDS: Sevelamer Carbonate 800 MG TAB PO SCH (09:57)
[2020-06-29] MEDS: Folic Acid/Vit B Comp W-C PO SCH (09:58)
[2020-06-29] MEDS: Famotidine 20 MG TAB PO SCH (09:58)
[2020-06-29] MEDS: Heparin 5,000 UNITS/ML VIAL SC SCH (09:58)
[2020-06-29] MEDS: hydrALAZINE 25 MG TAB PO SCH (10:02)
== END 2020-06-29 11:43 | disposition home or self-care (01) | DRG 302 ==
LOC: CSHERS 02:35 → CSHTELE 04:53 → INTOOBSV 06:45 → UNDOADMOB 06:45 → CSHTELE 06:45 → OBSVTOIN 06-26 11:38
PROVIDERS: ADMIT Student in an Organized Health Care Education/Training Program; ATTEND Internal Medicine
PROC: 5A1D70Z Performance of Urinary Filtration, Intermittent, Less than 6 Hours Per Day (ICD-10-PCS; principal; 2020-06-27)
PROC: 30233N1 Transfusion of Nonautologous Red Blood Cells into Peripheral Vein, Percutaneous Approach (ICD-10-PCS; 2020-06-27)
DX: I25.110 Atherosclerotic heart disease of native coronary artery with unstable angina pectoris (principal); N18.6 End stage renal disease; G93.41 Metabolic encephalopathy; A41.9 Sepsis, unspecified organism; N25.81 Secondary hyperparathyroidism of renal origin; I13.2 Hypertensive heart and chronic kidney disease with heart failure and with stage 5 chronic kidney disease, or end stage renal disease; I50.42 Chronic combined systolic (congestive) and diastolic (congestive) heart failure; J96.11 Chronic respiratory failure with hypoxia; Z20.822 Contact with and (suspected) exposure to COVID-19; I42.9 Cardiomyopathy, unspecified; R77.8 Other specified abnormalities of plasma proteins; M54.5 Low back pain; G31.84 Mild cognitive impairment of uncertain or unknown etiology; Z53.29 Procedure and treatment not carried out because of patient's decision for other reasons; E78.5 Hyperlipidemia, unspecified; D63.1 Anemia in chronic kidney disease; M54.2 Cervicalgia; Z79.899 Other long term (current) drug therapy; Z99.2 Dependence on renal dialysis; Z79.82 Long term (current) use of aspirin; Z95.5 Presence of coronary angioplasty implant and graft; Z91.15 Patient's noncompliance with renal dialysis
CPT/HCPCS: 0240U; 36415; 36416; 36430; 70450; 71045; 80048; 80053; 82553; 83605; 83690; 83735; 83880; 84145; 84484; 85025; 86140; 86769; 86850; 86900; 86901; 87040; 87077; 87149; 87186; 87635; 90935; 93005; 93010; 93306; 94760; 96372; G0257; G0378; J1630; J1644; J2543; J3370; J3490; P9016; Q5105; U0003; U0005

== ENCOUNTER 2020-07-27 21:46 | Inpatient (IN) | payer OTHER ==
[2020-07-27 23:09] LABS: #Basophils 0.1 10x3/uL (0.0-0.2); #Eosinphils 0.2 10x3/uL (0.0-0.5); #Monocytes 0.4 10x3/uL (0.0-1.1); #Neutrophils 4.1 10x3/uL (1.5-8.4); %Basophils 1.2 % (0.0-2.0); %Eosinophils 3.3 % (0.0-6.0); %Monocytes 7.2 % (0.0-10.0); %Neutrophils 78.9 % (40.0-75.0); Hemoglobin 7.8 g/dL (13.5-17.5); Mean Corpuscular Hemoglobin 26.8 pg (27.0-33.0); Mean Corpuscular Volume 86.6 fl (81.2-95.1); Mean Platelet Volume 9.3 fl (7.4-10.4); Platelet Count 150 10x3/uL (150-450); RBC Distribution Width 19.9 % (11.5-14.5); Red Blood Cell (RBC) Count 2.91 10x6/uL (4.32-5.72); White Blood Cell (WBC) Count 5.1 10x3/uL (3.5-10.5)
[2020-07-27] MEDS ORDERED: hydrALAZINE 25 MG TAB ONE (23:23)
[2020-07-27 23:26] LABS: ALT (SGPT) 20 U/L (8-55); AST (SGOT) 17 U/L (5-34); Albumin 3.8 g/dL (3.5-5.0); Alkaline Phosphatase 94 U/L (40-110); Anion Gap 26 mmol/L (10-20); BUN (Urea Nitrogen) 91 mg/dL (8.4-25.7); Bilirubin, Total 0.7 mg/dL (0.2-1.2); Calc. Creatinine Clearance 0 mL/min (70-130); Calcium 9.7 mg/dL (7.8-10.44); Carbon Dioxide 22 mmol/L (22-29); Chloride 106 mmol/L (98-107); Globulin 3.6 g/dL (2.4-3.5); Glucose 100 mg/dL (70-105); Potassium 5.6 mmol/L (3.5-5.1); Protein, Total 7.4 g/dL (6.0-8.3); Sodium 148 mmol/L (136-145)
[2020-07-28 00:03] LABS: CKMB 4.9 ng/mL (0-6.6)
[2020-07-28] MEDS ORDERED: cloNIDine 0.1 MG TAB ONE (01:25)
[2020-07-28] MEDS ORDERED: Nitroglycerin 2% Ointment 1 INCH/1 GM Packet ONE (01:26)
[2020-07-28] MEDS ORDERED: Vancomycin HCl 500 MG VIAL IVPB SCH (02:00)
[2020-07-28] MEDS: Nitroglycerin 2% Ointment 1 INCH/1 GM Packet TOP SCH ×4 (03:07→20:17)
[2020-07-28] MEDS ORDERED: Sevelamer Carbonate 800 MG TAB PO PRN (03:30)
[2020-07-28] MEDS: hydrALAZINE 25 MG TAB PO SCH ×4 (06:30→23:28)
[2020-07-28 06:58] LABS: #Eosinphils 0.1 10x3/uL (0.0-0.5); #Monocytes 0.4 10x3/uL (0.0-1.1); #Neutrophils 5.2 10x3/uL (1.5-8.4); %Basophils 0.6 % (0.0-2.0); %Lymphocytes 8.5 % (18.0-47.0); %Monocytes 6.3 % (0.0-10.0); %Neutrophils 83.3 % (40.0-75.0); Hemoglobin 7.4 g/dL (13.5-17.5); Mean Corpuscular HGB CONC 30.7 g/dL (32.0-36.0); Mean Corpuscular Hemoglobin 26.3 pg (27.0-33.0); Mean Corpuscular Volume 85.8 fl (81.2-95.1); Mean Platelet Volume 9.8 fl (7.4-10.4); Platelet Count 166 10x3/uL (150-450); RBC Distribution Width 19.6 % (11.5-14.5); Red Blood Cell (RBC) Count 2.81 10x6/uL (4.32-5.72); White Blood Cell (WBC) Count 6.2 10x3/uL (3.5-10.5)
[2020-07-28 07:29] LABS: Troponin I 0.154 ng/mL (< 0.028)
[2020-07-28 07:33] LABS: Anion Gap 20 mmol/L (10-20); BUN (Urea Nitrogen) 26 mg/dL (8.4-25.7); Calc. Creatinine Clearance 14 mL/min (70-130); Calcium 9.7 mg/dL (7.8-10.44); Carbon Dioxide 29 mmol/L (22-29); Chloride 98 mmol/L (98-107); Glucose 84 mg/dL (70-105); Potassium 3.2 mmol/L (3.5-5.1); Sodium 144 mmol/L (136-145)
[2020-07-28] MEDS: Heparin 5,000 UNITS/ML VIAL SC SCH ×2 (08:09→20:18)
[2020-07-28] MEDS: Losartan Potassium 50 MG TAB PO SCH (08:10)
[2020-07-28] MEDS: Aspirin 81 mg Enteric Coated Tablet PO SCH (08:10)
[2020-07-28] MEDS: Sevelamer Carbonate 800 MG TAB PO SCH ×3 (08:10→16:23)
[2020-07-28] MEDS: Carvedilol 25 MG TAB PO SCH ×2 (08:10→20:18)
[2020-07-28] MEDS: TICAGRELOR 90 MG TABLET PO SCH ×2 (08:10→20:18)
[2020-07-28] MEDS ORDERED: Prevnar 13-Val Conj/PF 0.5 ML SYRINGE IM ONE (09:00)
[2020-07-28] MEDS: NIFEdipine XL 60 MG TAB PO SCH (09:04)
[2020-07-28] MEDS: cloNIDine 0.3mg/24 Hour PATCH TD SCH (09:06)
[2020-07-28 11:14] LABS: Anion Gap 21 mmol/L (10-20); BUN (Urea Nitrogen) 41 mg/dL (8.4-25.7); Calc. Creatinine Clearance 8 mL/min (70-130); Calcium 9.5 mg/dL (7.8-10.44); Carbon Dioxide 28 mmol/L (22-29); Chloride 99 mmol/L (98-107); Glucose 74 mg/dL (70-105); Potassium 4.2 mmol/L (3.5-5.1); Sodium 144 mmol/L (136-145)
[2020-07-28] MEDS: diphenhydrAMINE 25 MG CAP PO PRN ×2 (13:19→20:19)
[2020-07-28] MEDS ORDERED: Vancomycin HCl 1 GM in Sodium Chloride 0.9% 250 ML 250 ML IVPB SCH (14:15)
[2020-07-28] MEDS ORDERED: Vancomycin HCl 750 MG in Sodium Chloride 0.9% 250 ML 250 ML IVPB SCH (14:15)
[2020-07-28] MEDS ORDERED: HOLD VANCOMYCIN FOR LEVEL >20 FS SCH (14:15)
[2020-07-28] MEDS ORDERED: Vancomycin HCl 500 MG in Sodium Chloride 0.9% 100 ML IVPB SCH ×2 (14:15)
[2020-07-28] MEDS ORDERED: Vancomycin HCl 250 MG in Sodium Chloride 0.9% 100 ML IVPB SCH (14:15)
[2020-07-28] MEDS ORDERED: Vancomycin 1 GM in Premix Bag 1 BAG IVPB SCH (14:15)
[2020-07-28] MEDS: EPOETIN ALFA-EPBX (ESRD) 10,000 UNIT/ML VIAL IVP PRN (14:32)
[2020-07-28] MEDS: Atorvastatin Calcium 20 MG TAB PO SCH (20:18)
[2020-07-28] MEDS: Acetaminophen 325 MG TAB PO PRN (23:29)
[2020-07-29] MEDS: Nitroglycerin 2% Ointment 1 INCH/1 GM Packet TOP SCH ×4 (03:13→20:13)
[2020-07-29] MEDS: hydrALAZINE 25 MG TAB PO SCH ×4 (05:11→23:20)
[2020-07-29] MEDS: TICAGRELOR 90 MG TABLET PO SCH ×2 (07:59→20:14)
[2020-07-29] MEDS: Sevelamer Carbonate 800 MG TAB PO SCH ×3 (07:59→17:29)
[2020-07-29] MEDS: Heparin 5,000 UNITS/ML VIAL SC SCH ×2 (08:00→20:14)
[2020-07-29] MEDS: Losartan Potassium 50 MG TAB PO SCH (08:00)
[2020-07-29] MEDS: Carvedilol 25 MG TAB PO SCH ×2 (08:00→20:14)
[2020-07-29] MEDS: Aspirin 81 mg Enteric Coated Tablet PO SCH (08:00)
[2020-07-29] MEDS ORDERED: Vancomycin HCl 500 MG VIAL IVPB SCH (08:15)
[2020-07-29] MEDS: NIFEdipine XL 60 MG TAB PO SCH (12:32)
[2020-07-29] MEDS ORDERED: Labetalol HCl 100 MG/20 ML VIAL SLOW IVP PRN (14:46)
[2020-07-29] MEDS: Atorvastatin Calcium 20 MG TAB PO SCH (20:13)
[2020-07-29] MEDS: diphenhydrAMINE 25 MG CAP PO PRN (23:20)
[2020-07-30] MEDS: Nitroglycerin 2% Ointment 1 INCH/1 GM Packet TOP SCH ×5 (02:44→21:01)
[2020-07-30] MEDS: hydrALAZINE 25 MG TAB PO SCH ×3 (05:31→17:45)
[2020-07-30] MEDS: NIFEdipine XL 60 MG TAB PO SCH (09:12)
[2020-07-30] MEDS: Carvedilol 25 MG TAB PO SCH ×2 (09:13→21:00)
[2020-07-30] MEDS: Losartan Potassium 50 MG TAB PO SCH (09:13)
[2020-07-30] MEDS: TICAGRELOR 90 MG TABLET PO SCH ×2 (09:14→21:00)
[2020-07-30] MEDS: Aspirin 81 mg Enteric Coated Tablet PO SCH (09:14)
[2020-07-30] MEDS: Heparin 5,000 UNITS/ML VIAL SC SCH ×3 (09:14→21:00)
[2020-07-30] MEDS: Sevelamer Carbonate 800 MG TAB PO SCH ×3 (09:15→18:12)
[2020-07-30 16:21] LABS: Anion Gap 17 mmol/L (10-20); BUN (Urea Nitrogen) 37 mg/dL (8.4-25.7); Calc. Creatinine Clearance 7 mL/min (70-130); Calcium 9.7 mg/dL (7.8-10.44); Carbon Dioxide 32 mmol/L (22-29); Chloride 99 mmol/L (98-107); Glucose 117 mg/dL (70-105); Potassium 3.9 mmol/L (3.5-5.1); Sodium 144 mmol/L (136-145)
[2020-07-30 16:44] LABS: #Eosinphils 0.1 10x3/uL (0.0-0.5); #Monocytes 0.5 10x3/uL (0.0-1.1); #Neutrophils 4.5 10x3/uL (1.5-8.4); %Basophils 0.5 % (0.0-2.0); %Eosinophils 2.5 % (0.0-6.0); %Lymphocytes 9.2 % (18.0-47.0); %Monocytes 8.1 % (0.0-10.0); %Neutrophils 79.3 % (40.0-75.0); Mean Corpuscular HGB CONC 31.3 g/dL (32.0-36.0); Mean Corpuscular Hemoglobin 27.3 pg (27.0-33.0); Mean Corpuscular Volume 87.4 fl (81.2-95.1); Mean Platelet Volume 9.3 fl (7.4-10.4); Platelet Count 154 10x3/uL (150-450); RBC Distribution Width 16.9 % (11.5-14.5); Red Blood Cell (RBC) Count 3.66 10x6/uL (4.32-5.72); White Blood Cell (WBC) Count 5.7 10x3/uL (3.5-10.5)
[2020-07-30] MEDS: EPOETIN ALFA-EPBX (ESRD) 10,000 UNIT/ML VIAL IVP PRN (17:45)
[2020-07-30 20:07] LABS: SARS-CoV-2 NAA Rapid Test Not Detected (NotDetected)
[2020-07-30] MEDS: Atorvastatin Calcium 20 MG TAB PO SCH (21:00)
[2020-07-31] MEDS: hydrALAZINE 25 MG TAB PO SCH ×4 (00:41→17:31)
[2020-07-31] MEDS: Nitroglycerin 2% Ointment 1 INCH/1 GM Packet TOP SCH ×4 (00:44→17:47)
[2020-07-31] MEDS: Aspirin 81 mg Enteric Coated Tablet PO SCH (08:46)
[2020-07-31] MEDS: Carvedilol 25 MG TAB PO SCH ×2 (08:46→20:35)
[2020-07-31] MEDS: NIFEdipine XL 60 MG TAB PO SCH (08:46)
[2020-07-31] MEDS: Losartan Potassium 50 MG TAB PO SCH (08:46)
[2020-07-31] MEDS: Sevelamer Carbonate 800 MG TAB PO SCH ×3 (08:46→17:31)
[2020-07-31] MEDS: TICAGRELOR 90 MG TABLET PO SCH ×2 (08:47→20:35)
[2020-07-31] MEDS: Heparin 5,000 UNITS/ML VIAL SC SCH ×2 (10:05→20:35)
[2020-07-31 11:35] VITALS: BMI 19.3
[2020-07-31] MEDS: Atorvastatin Calcium 20 MG TAB PO SCH (20:35)
[2020-08-01] MEDS: hydrALAZINE 25 MG TAB PO SCH ×5 (00:05→22:24)
[2020-08-01] MEDS: Nitroglycerin 2% Ointment 1 INCH/1 GM Packet TOP SCH ×4 (01:15→20:00)
[2020-08-01] MEDS: Sevelamer Carbonate 800 MG TAB PO SCH ×3 (09:31→17:35)
[2020-08-01] MEDS: NIFEdipine XL 60 MG TAB PO SCH (09:31)
[2020-08-01] MEDS: Losartan Potassium 50 MG TAB PO SCH (09:32)
[2020-08-01] MEDS: Aspirin 81 mg Enteric Coated Tablet PO SCH (09:33)
[2020-08-01] MEDS: Carvedilol 25 MG TAB PO SCH ×2 (09:33→22:24)
[2020-08-01] MEDS: TICAGRELOR 90 MG TABLET PO SCH ×2 (09:33→22:24)
[2020-08-01] MEDS: Heparin 5,000 UNITS/ML VIAL SC SCH ×2 (09:34→22:25)
[2020-08-01] MEDS: Acetaminophen 325 MG TAB PO PRN (16:15)
[2020-08-01] MEDS: Atorvastatin Calcium 20 MG TAB PO SCH (22:24)
[2020-08-02] MEDS: Nitroglycerin 2% Ointment 1 INCH/1 GM Packet TOP SCH ×4 (05:33→21:59)
[2020-08-02] MEDS: hydrALAZINE 25 MG TAB PO SCH ×4 (07:14→17:45)
[2020-08-02] MEDS: Losartan Potassium 50 MG TAB PO SCH (08:47)
[2020-08-02] MEDS: Sevelamer Carbonate 800 MG TAB PO SCH ×4 (08:48→17:45)
[2020-08-02] MEDS: diphenhydrAMINE 25 MG CAP PO PRN (08:51)
[2020-08-02] MEDS: Carvedilol 25 MG TAB PO SCH ×2 (08:52→21:59)
[2020-08-02] MEDS: Aspirin 81 mg Enteric Coated Tablet PO SCH (08:52)
[2020-08-02] MEDS: TICAGRELOR 90 MG TABLET PO SCH ×2 (08:52→21:58)
[2020-08-02] MEDS: NIFEdipine XL 60 MG TAB PO SCH (08:52)
[2020-08-02] MEDS: Heparin 5,000 UNITS/ML VIAL SC SCH ×3 (08:53→22:29)
[2020-08-02] MEDS: Ondansetron ODT 4 MG TAB PO PRN (19:35)
[2020-08-02] MEDS: Atorvastatin Calcium 20 MG TAB PO SCH (21:58)
[2020-08-02] MEDS: Scopolamine 1.5 mg/72 hour Patch TD SCH (22:27)
[2020-08-03] MEDS: hydrALAZINE 25 MG TAB PO SCH ×5 (00:33→23:57)
[2020-08-03] MEDS: Nitroglycerin 2% Ointment 1 INCH/1 GM Packet TOP SCH ×4 (04:25→21:35)
[2020-08-03] MEDS: Aspirin 81 mg Enteric Coated Tablet PO SCH (09:52)
[2020-08-03] MEDS: Carvedilol 25 MG TAB PO SCH ×2 (09:52→21:35)
[2020-08-03] MEDS: Sevelamer Carbonate 800 MG TAB PO SCH ×3 (09:52→17:12)
[2020-08-03] MEDS: Losartan Potassium 50 MG TAB PO SCH (09:52)
[2020-08-03] MEDS: TICAGRELOR 90 MG TABLET PO SCH ×2 (09:52→21:35)
[2020-08-03] MEDS: NIFEdipine XL 60 MG TAB PO SCH (09:53)
[2020-08-03] MEDS: Heparin 5,000 UNITS/ML VIAL SC SCH ×2 (09:56→21:36)
[2020-08-03] MEDS: Atorvastatin Calcium 20 MG TAB PO SCH (21:35)
[2020-08-04] MEDS: Nitroglycerin 2% Ointment 1 INCH/1 GM Packet TOP SCH ×4 (01:52→20:21)
[2020-08-04] MEDS: hydrALAZINE 25 MG TAB PO SCH ×4 (06:16→23:55)
[2020-08-04] MEDS: NIFEdipine XL 60 MG TAB PO SCH (08:33)
[2020-08-04] MEDS: TICAGRELOR 90 MG TABLET PO SCH ×2 (08:33→20:22)
[2020-08-04] MEDS: Losartan Potassium 50 MG TAB PO SCH (08:34)
[2020-08-04] MEDS: Sevelamer Carbonate 800 MG TAB PO SCH ×3 (08:34→18:19)
[2020-08-04] MEDS: Aspirin 81 mg Enteric Coated Tablet PO SCH (08:34)
[2020-08-04] MEDS: Heparin 5,000 UNITS/ML VIAL SC SCH ×2 (08:35→20:22)
[2020-08-04] MEDS: Carvedilol 25 MG TAB PO SCH ×2 (08:35→20:21)
[2020-08-04] MEDS: cloNIDine 0.3mg/24 Hour PATCH TD SCH (08:38)
[2020-08-04] MEDS: Atorvastatin Calcium 20 MG TAB PO SCH (20:21)
[2020-08-05] MEDS: Nitroglycerin 2% Ointment 1 INCH/1 GM Packet TOP SCH ×4 (04:03→18:16)
[2020-08-05] MEDS: hydrALAZINE 25 MG TAB PO SCH ×5 (06:04→18:15)
[2020-08-05] MEDS: Aspirin 81 mg Enteric Coated Tablet PO SCH (09:58)
[2020-08-05] MEDS: Carvedilol 25 MG TAB PO SCH ×2 (09:58→20:55)
[2020-08-05] MEDS: Sevelamer Carbonate 800 MG TAB PO SCH ×5 (09:58→18:15)
[2020-08-05] MEDS: Heparin 5,000 UNITS/ML VIAL SC SCH ×2 (09:58→20:55)
[2020-08-05] MEDS: NIFEdipine XL 60 MG TAB PO SCH (09:59)
[2020-08-05] MEDS: TICAGRELOR 90 MG TABLET PO SCH ×2 (09:59→20:55)
[2020-08-05] MEDS: Losartan Potassium 50 MG TAB PO SCH (09:59)
[2020-08-05] MEDS: Ondansetron ODT 4 MG TAB PO PRN (13:35)
[2020-08-05] MEDS: Scopolamine 1.5 mg/72 hour Patch TD SCH (18:15)
[2020-08-05] MEDS: Atorvastatin Calcium 20 MG TAB PO SCH (20:55)
[2020-08-05 22:07] VITALS: BP 164/91; TEMP 98.1
== END 2020-08-05 21:40 | disposition home or self-care (01) | DRG 291 ==
LOC: CSHERS 21:46 → CSHICU 07-28 02:45 → CSHTELE 07-30 19:47
PROVIDERS: ADMIT Family Medicine; ATTEND Hospitalist
PROC: 5A1D70Z Performance of Urinary Filtration, Intermittent, Less than 6 Hours Per Day (ICD-10-PCS; principal; 2020-07-28)
PROC: 5A09357 Assistance with Respiratory Ventilation, Less than 24 Consecutive Hours, Continuous Positive Airway Pressure (ICD-10-PCS; 2020-07-28)
DX: I13.2 Hypertensive heart and chronic kidney disease with heart failure and with stage 5 chronic kidney disease, or end stage renal disease (principal); N18.6 End stage renal disease; J96.01 Acute respiratory failure with hypoxia; I50.33 Acute on chronic diastolic (congestive) heart failure; I16.1 Hypertensive emergency; E87.1 Hypo-osmolality and hyponatremia; Z20.822 Contact with and (suspected) exposure to COVID-19; D63.1 Anemia in chronic kidney disease; E78.5 Hyperlipidemia, unspecified; I25.10 Atherosclerotic heart disease of native coronary artery without angina pectoris; E87.5 Hyperkalemia; I16.0 Hypertensive urgency; Z79.82 Long term (current) use of aspirin; Z79.899 Other long term (current) drug therapy; Z99.2 Dependence on renal dialysis; Z91.19 Patient's noncompliance with other medical treatment and regimen; Z95.5 Presence of coronary angioplasty implant and graft; Z91.15 Patient's noncompliance with renal dialysis
CPT/HCPCS: 36415; 36430; 71045; 80048; 80053; 82553; 83735; 83880; 84484; 85025; 86850; 86900; 86901; 90935; 93005; 93010; 94660; 94760; G0257; J1644; P9016; Q0162; Q0163; Q5105; U0002

== ENCOUNTER 2020-12-18 12:03 | Emergency (ER) | payer OTHER | END 2020-12-18 12:42 | LOC: EDBD → CSHERS 12:03 | DX: I13.2 Hypertensive heart and chronic kidney disease with heart failure and with stage 5 chronic kidney disease, or end stage renal disease; N18.6 End stage renal disease; I50.9 Heart failure, unspecified; I25.2 Old myocardial infarction; Z95.5 Presence of coronary angioplasty implant and graft; Z99.2 Dependence on renal dialysis | CPT/HCPCS: 99282 ==

== ENCOUNTER 2020-12-22 17:40 | Emergency (ER) | payer OTHER | END 2020-12-22 21:29 | disposition home or self-care (01) | LOC: CSHERS 17:40 | DX: T82.898A Other specified complication of vascular prosthetic devices, implants and grafts, initial encounter (principal); S71.111A Laceration without foreign body, right thigh, initial encounter; I82.621 Acute embolism and thrombosis of deep veins of right upper extremity; Z79.01 Long term (current) use of anticoagulants; I10 Essential (primary) hypertension; I25.2 Old myocardial infarction; I13.2 Hypertensive heart and chronic kidney disease with heart failure and with stage 5 chronic kidney disease, or end stage renal disease; I50.9 Heart failure, unspecified; N18.6 End stage renal disease; J45.909 Unspecified asthma, uncomplicated; Z79.899 Other long term (current) drug therapy | CPT/HCPCS: 12001 ==